=== PATIENT | male | born 1945 | race Caucasian/White ===

== ENCOUNTER 2018-02-21 08:51 | Day surgery (SDC) | payer MEDICARE ==
[~2018-02-21] VITALS: Ht 175.3 cm; Wt 95.5 kg
[~2018-02-21 08:51] MED LIST: ALLO300 PO; ASPI81CH PO; ATEN50 PO; Adult Low Dose81 MG PO; CEFD300 PO; CHLO25B PO; CIPDEXSU LEFTEAR; CIPR500 PO; CO Q10100 MG PO; Cephalexin500 MG PO; Coq-10100 MG PO; DICL250 PO; DICL25ER PO; DOCU100 PO; DULO30 PO; FERR325 PO; FLONASE ALLERG9.9 ML; Flonase 0.05% N16 GM; GABA300 PO; GABA800 PO; HYDACE10B PO; HYDACE5325 PO; HYDCHL25 PO; HYDR1TAB94 PO; INDO25 PO; Indomethacin25 MG PO; LORA.5 PO; METO25; METO50; Multiple Vitam1 EAC1 PO; NAPR500 PO; NITROFURANTOIN25 MG; OMEP20ER PO; Omeprazole20 M1; POTA10T PO; PRED10 PO; PRED20 PO; PREG150 PO; Pepcid40 MG PO; Prinivil10 MG PO; RXCLIN PO; SIMV40 PO; TAMS.4ER PO; UBID10; WARF4 PO; ZOLP10 PO; ZOLP5 PO
== END 2018-02-21 12:02 | disposition home or self-care (01) ==
LOC: ORSCSDS 08:51
PROVIDERS: Orthopaedic Surgery
PROC: 01N50ZZ Release Median Nerve, Open Approach (ICD-10-PCS; principal; 2018-02-21 10:00)
DX: G56.02 Carpal tunnel syndrome, left upper limb (principal); I10 Essential (primary) hypertension; G62.9 Polyneuropathy, unspecified; Z79.899 Other long term (current) drug therapy
CPT/HCPCS: J0690; J2250; J3010; J7120

== ENCOUNTER → 2018-09-17 | Outpatient (CLI) | payer MEDICARE ==
[2018-09-17 11:40] LABS: BODY FLUID RBC 0.004 (0-0); RBC Count, Synovial Fluid 4000 /mm3 (0-0); WBC Count, Synovial Fluid 846 /mm3 (0-180)
[2018-09-17 11:43] LABS: Appearance, Synovial Fluid Hazy (Clear); Color, Synovial Fluid Yellow (None-P Yel)
[2018-09-17 12:38] LABS: Eos, Synovial Fluid 1 % (0-2); Lymphs, Synovial Fluid 30 % (0-15); Monocytes/Macrophages, Synovia 57 % (0-65); Neutrophils, Synovial Fluid 11 % (0-24)
== END | disposition home or self-care (01) ==
LOC: LAB 11:26 → LAB SHORT 11:26
PROVIDERS: Orthopaedic Surgery
DX: Z47.1 Aftercare following joint replacement surgery (principal); M25.461 Effusion, right knee; Z96.651 Presence of right artificial knee joint
CPT/HCPCS: 87070; 87075; 87205; 89051

== ENCOUNTER 2020-04-03 16:56 | Emergency (ER) | payer OTHER, MEDICARE ==
[~2020-04-03] VITALS: Ht 175.3 cm; Wt 86.2 kg
[~2020-04-03 16:56] MED LIST changes: -METO25; +METO25 PO
== END 2020-04-03 21:35 | disposition home or self-care (01) ==
LOC: ER 16:56
DX: S61.012A Laceration without foreign body of left thumb without damage to nail, initial encounter (principal); I10 Essential (primary) hypertension; Z23 Encounter for immunization; Z79.899 Other long term (current) drug therapy; Z79.82 Long term (current) use of aspirin; Z88.1 Allergy status to other antibiotic agents; Z88.5 Allergy status to narcotic agent; Z87.891 Personal history of nicotine dependence; W23.0XXA Caught, crushed, jammed, or pinched between moving objects, initial encounter
CPT/HCPCS: 12002; 90471; 90714; 99282-25

== ENCOUNTER → 2021-09-12 | Outpatient (CLI) | payer MEDICARE, OTHER | END | disposition home or self-care (01) | LOC: LAB 13:46 → LAB SHORT 13:46 | DX: R30.0 Dysuria (principal) | CPT/HCPCS: 87086 ==

== ENCOUNTER → 2023-01-14 | Outpatient (CLI) | payer MEDICARE | LOC: LAB 13:15 → LAB SHORT 13:15 | DX: N39.0 Urinary tract infection, site not specified (principal) | CPT/HCPCS: 87086 ==